=== PATIENT | male | born 1990 | race Caucasian/White ===

== ENCOUNTER 2019-03-22 12:18 | Emergency (ER) | payer SELFPAY ==
[~2019-03-22] VITALS: Ht 170.2 cm; Wt 55.0 kg
[~2019-03-22 12:18] MED LIST: IBUP-1985 PO
--- NOTE | 2019-03-22 12:32 | NUR ---
[facility] NOTIFIED AND WILL SEND A DEPUTY SINCE THIS OCCURED IN [place]. S.O. WILL PROVIDE A CASE NUMBER WHEN THEY COME TO THE ER.
[2019-03-22] MEDS ORDERED: morphine 4 MG/ML inj SYRINge IM ONE ×2 (12:45→13:10)
[2019-03-22] MEDS ORDERED: rabies immune globulin/PF 150 unit/ml inj IMVAC STA (13:07)
[2019-03-22] MEDS ORDERED: LIDOcaine 1% w/epiNEPHrine 1:200,000 30ml vial IM ONE (13:10)
[2019-03-22] MEDS ORDERED: TETanus/Pertussis (Acell)/Diphther VAC/PF (Tdap-Adult) 0.5ml syringe IM ONE (13:10)
[2019-03-22] MEDS ORDERED: rabies vaccine (PCEC)/PF 2.5 unit kit IMVAC ONE (13:10)
[2019-03-22 13:27] VITALS: BP 135/97
[2019-03-22] MEDS ORDERED: HYDR-4353 PO (14:45)
[2019-03-22] MEDS ORDERED: AMOX-422 PO (14:45)
[2019-03-22] MEDS ORDERED: amox tr/potassium clavulanate 875/125mg TAB PO ONE (14:45)
== END 2019-03-22 15:09 | disposition home or self-care (01) ==
LOC: ER 12:18
DX: S51.812A Laceration without foreign body of left forearm, initial encounter (principal); S61.512A Laceration without foreign body of left wrist, initial encounter; F15.90 Other stimulant use, unspecified, uncomplicated; Z56.0 Unemployment, unspecified; Z79.899 Other long term (current) drug therapy; W54.0XXA Bitten by dog, initial encounter; Y93.89 Activity, other specified; Y92.89 Other specified places as the place of occurrence of the external cause; Y99.8 Other external cause status
CPT/HCPCS: 12002; 73090; 90375; 90471; 90675; 90715; 96372; 99284; J2270

== ENCOUNTER 2024-09-05 23:41 | Emergency (ER) | payer MEDICAID ==
[~2024-09-05] VITALS: Ht 160 cm; Wt 62.8 kg
[2024-09-06] MEDS ORDERED: AMOX-115 PO (02:49)
[2024-09-06] MEDS: amox tr/potassium clavulanate 875/125mg TAB PO ONE (03:08)
[2024-09-06] MEDS: ondansetron 4mg rapidly disintigrating tab PO ONE (03:08)
[2024-09-06 03:15] VITALS: BP 121/67; PULSE 95; RESP 16; TEMP 97.8; O2SAT 97
== END 2024-09-06 03:17 | disposition home or self-care (01) ==
LOC: ER 23:41
DX: K04.7 Periapical abscess without sinus (principal); F15.90 Other stimulant use, unspecified, uncomplicated; F10.90 Alcohol use, unspecified, uncomplicated; Y90.9 Presence of alcohol in blood, level not specified
CPT/HCPCS: 99283